=== PATIENT | male | born 1975 | race African-American/Black ===

== ENCOUNTER 2021-09-04 01:12 | Emergency (ER) | payer SELFPAY ==
[~2021-09-04] VITALS: Ht 185.4 cm; Wt 90.0 kg
[2021-09-04] MEDS ORDERED: ONDANSETRON HCL 4MG/2ML INJ IV STA ×2 (01:41→10:00)
[2021-09-04] MEDS ORDERED: KETOROLAC 30MG/ML VIAL IV STA (01:41)
[2021-09-04] MEDS ORDERED: SODIUM CHLORIDE 0.9% 1,000 ML IV ONE (01:45)
[2021-09-04 03:16] LABS: CHLORIDE 113 mEq/L (98-107)
[2021-09-04 03:20] LABS: BASOPHILS % 1.3 % (0.0-2.0); EOSINOPHILS % 0.5 % (0.0-5.0); HEMATOCRIT. 39.6 % (42.0-52.0); HEMOGLOBIN. 13.2 g/dL (14.0-18.0); LYMPHOCYTES % 38.7 % (20.0-50.0); MEAN CORPUSCULAR HEMOGLOBIN 30.2 pg (28.0-32.0); MEAN CORPUSCULAR VOLUME 90.6 fL (80.0-94.0); MEAN PLATELET VOLUME 7.2 fl (7.4-10.4); MONOCYTES % 9.2 % (2.0-8.0); NEUTROPHILS % 50.3 % (40.0-76.0); PLATELET 348 x1000/uL (130-400); RED BLOOD CELL COUNT 4.38 mill/uL (4.7-6.1); RED CELL DISTRIBUTION WIDTH 19.7 % (11.6-14.6)
[2021-09-04 04:53] LABS: ETHANOL BLOOD 380 mg/dL
[2021-09-04] MEDS ORDERED: KETOROLAC 15MG/ML VIAL IV STA (10:00)
[2021-09-04 13:15] VITALS: BP 134/64
== END 2021-09-04 15:00 | disposition left against medical advice (07) ==
LOC: ER 01:12
DX: K85.90 Acute pancreatitis without necrosis or infection, unspecified (principal); F10.20 Alcohol dependence, uncomplicated; R10.9 Unspecified abdominal pain; R11.2 Nausea with vomiting, unspecified; Y90.9 Presence of alcohol in blood, level not specified
CPT/HCPCS: 36415; 74176; 80053; 80320; 83605; 83690; 85025; 96374; 96375; 99284; J1885; J2405; J7030; G0480